=== PATIENT | female | born 1975 | race Caucasian/White ===

== ENCOUNTER 2019-03-30 20:41 | Emergency (ER) | payer OTHER, MEDICAID | END 2019-03-30 21:15 | disposition home or self-care (01) | LOC: FTE 20:41 | DX: S70.261A Insect bite (nonvenomous), right hip, initial encounter (principal); W57.XXXA Bitten or stung by nonvenomous insect and other nonvenomous arthropods, initial encounter; Y92.9 Unspecified place or not applicable; Z86.73 Personal history of transient ischemic attack (TIA), and cerebral infarction without residual deficits | CPT/HCPCS: 99283; Z7502 ==

== ENCOUNTER 2019-04-03 13:46 | Emergency (ER) | payer OTHER | END 2019-04-03 14:00 | disposition home or self-care (01) | LOC: E/R 14:00 → FTE 13:46 | DX: L02.415 Cutaneous abscess of right lower limb (principal); Z86.73 Personal history of transient ischemic attack (TIA), and cerebral infarction without residual deficits | CPT/HCPCS: 99283; Z7502 ==